=== PATIENT | male | born 1965 | race Native Hawaiian/Other Pacific Islander ===

== ENCOUNTER 2022-09-14 11:52 | Emergency (ER) | payer OTHER ==
[~2022-09-14] VITALS: Ht 182.9 cm; Wt 90.7 kg
[~2022-09-14 11:52] MED LIST: ENTERIC COATED325 MG PO; NORVASC 5MG TAB PO; ZESTRIL40 MG PO
[2022-09-14 11:55] VITALS: TEMP 97.2
[2022-09-14 12:27] LABS: PLATELET COUNT 201 K/uL (142-355)
[2022-09-14 12:35] LABS: POTASSIUM 3.5 mmol/L (3.6-5.2)
[2022-09-14 15:00] VITALS: BP 153/94
== END 2022-09-14 15:30 | disposition home or self-care (01) ==
LOC: ED 11:52
PROVIDERS: Family Medicine
DX: K29.80 Duodenitis without bleeding (principal); R10.9 Unspecified abdominal pain; F17.210 Nicotine dependence, cigarettes, uncomplicated
CPT/HCPCS: 80053; 81002; 83690; 84484; 85027; 93005; 96361; 96374; 99284; J1885; J2405